=== PATIENT | male | born 1940 | race Caucasian/White ===

== ENCOUNTER → 2017-03-15 | Outpatient (CLI) | payer MEDICARE | END | disposition home or self-care (01) | LOC: CFH 10:42 → MERGE 11:00 | PROVIDERS: ATTEND Family Medicine | DX: N50.3 Cyst of epididymis (principal); N43.3 Hydrocele, unspecified | CPT/HCPCS: 76870 ==

== ENCOUNTER → 2018-11-09 | Outpatient (CLI) | payer MEDICARE ==
[~2018-11-09] MED LIST: ASPI-496 PO; ATOR20TA PO; DILT120C88 PO; HYDR-3307 PO; HYDR25TA6 PO; LOSA100T14 PO; POLY17PO29 PO; WARF-36 PO
[2018-11-09 09:54] LABS: BASOPHILS # (AUTO) 0.07 x10^3/uL (0-0.1); BASOPHILS % (AUTO) 1 % (0-1); EOSINOPHILS # (AUTO) 0.11 x10^3/uL (0-0.4); EOSINOPHILS % (AUTO) 1 % (1-7); HCT (SEDRATE) 48.3 % (39.2-51.8); LYMPHOCYTES % (AUTO) 18 % (22-44); MD NO; MEAN CORPUSCULAR HEMOGLOBIN 29.4 pg (27.5-34.5); MEAN CORPUSCULAR HGB CONC 32.9 g/dL (33.2-36.2); MEAN CORPUSCULAR VOLUME 89.2 fL (81-97); MEAN PLATELET VOLUME 8.9 fL (7.4-10.4); MONOCYTES # (AUTO) 0.88 x10^3/uL (0.2-0.8); MONOCYTES % (AUTO) 11 % (2-9); NEUTROPHILS # (AUTO) 5.38 x10^3/uL (1.8-6.8); NEUTROPHILS % (AUTO) 69 % (42-75); PLATELET COUNT 252 x10^3/uL (130-400); RED BLOOD COUNT 5.39 x10^6/uL (4.38-5.82); RED CELL DISTRIBUTION WIDTH 15.8 % (9.4-14.8)
[2018-11-09 10:01] LABS: MICROSCOPIC NOT IND
[2018-11-09 10:04] LABS: CULTURE INDICATED? NO
[2018-11-09 10:04] LABS: ALANINE AMINOTRANSFERASE 26 U/L (12-78); ALBUMIN 3.7 g/dL (3.4-5.0); ANION GAP 6 mmol/L (5-15); CALCIUM 8.9 mg/dL (8.5-10.1); CHLORIDE 103 mmol/L (98-107); CREATININE 1.26 mg/dL (0.7-1.3)
[2018-11-09 10:06] LABS: ALKALINE PHOSPHATASE 78 U/L (45-117); BILIRUBIN,TOTAL 0.5 mg/dL (0.2-1.0); TOTAL PROTEIN 7.5 g/dL (6.4-8.2)
[2018-11-09 10:11] LABS: INTERNATIONAL NORMALIZED RATIO 2.31 (0.93-1.1); PROTHROMBIN TIME 23.5 Seconds (9.6-11.5)
== END | disposition home or self-care (01) ==
LOC: STAR 08:19
PROVIDERS: ATTEND Internal Medicine
DX: M48.061 Spinal stenosis, lumbar region without neurogenic claudication (principal); M54.16 Radiculopathy, lumbar region; Z79.01 Long term (current) use of anticoagulants; Z79.899 Other long term (current) drug therapy; Z87.891 Personal history of nicotine dependence
CPT/HCPCS: 36415; 71046; 80053; 81003; 85025; 85610; 85651; 85730; 93005

== ENCOUNTER 2018-11-20 08:24 | Inpatient (IN) | payer MEDICARE ==
[~2018-11-20] VITALS: Ht 180.3 cm; Wt 135.0 kg
[~2018-11-20 08:24] MED LIST changes: +BACITRACIN 50,000 UNIT ONE; +BUPIVACAINE/PF-EPI 0.5% 1:200K ONE; +THROMBIN 20,000 UNIT VIAL TP ONE; +TRANEXAMIC ACID 100 MG/ML, 10ML ONE
[2018-11-20] MEDS ORDERED: LACTATED RINGERS 1,000 ML IV SCH (08:57)
[2018-11-20 09:08] VITALS: BP 126/76
[2018-11-20 09:34] LABS: INTERNATIONAL NORMALIZED RATIO 0.97 (0.93-1.1); PROTHROMBIN TIME 10.2 Seconds (9.6-11.5)
[2018-11-20] MEDS ORDERED: MIDAZOLAM 1 MG/ML, 2ML ONE (10:11)
[2018-11-20] MEDS ORDERED: FENTANYL PF 250 MCG/5ML ONE (10:12)
[2018-11-20] MEDS ORDERED: ROCURONIUM 10MG/ML,5ML ONE (10:16)
[2018-11-20] MEDS ORDERED: DEXAMETHASONE 4 MG/ML, 1ML ONE (10:16)
[2018-11-20] MEDS ORDERED: PROPOFOL 10 MG/ML, 20ML ONE (10:16)
[2018-11-20] MEDS ORDERED: SUCCINYLCHOLINE 20 MG/ML, 10ML ONE (10:16)
[2018-11-20] MEDS ORDERED: ONDANSETRON ODT 8 MG PO PRN (11:00)
[2018-11-20] MEDS ORDERED: MEPERIDINE/PF 25MG/0.5ML IVPush PRN (11:00)
[2018-11-20] MEDS ORDERED: hydrALAzine 20 MG/ML, 1ML IV PRN (11:00)
[2018-11-20] MEDS ORDERED: ONDANSETRON 2MG/ML, 2ML IV PRN ×2 (11:00→16:30)
[2018-11-20] MEDS ORDERED: FENTANYL PF 100 MCG/2ML IV PRN (11:00)
[2018-11-20] MEDS ORDERED: LABETALOL 5MG/ML, 20ML IV PRN ×2 (11:00→16:30)
[2018-11-20] MEDS ORDERED: DIAZEPAM 5 MG/ML, 2ML IVPush PRN (11:00)
[2018-11-20] MEDS ORDERED: PROMETHAZINE 12.5 MG SUPP PR PRN (11:00)
[2018-11-20] MEDS ORDERED: MIDAZOLAM 1 MG/ML, 2ML IV PRN (11:00)
[2018-11-20] MEDS ORDERED: ALBUTEROL SULFATE 2.5 MG/3 ML NPPB PRN (11:00)
[2018-11-20] MEDS ORDERED: HALOPERIDOL 5 MG/ML IV PRN (11:00)
[2018-11-20] MEDS ORDERED: EPHEDRINE 50 MG/ML, 1ML IVPush PRN (11:00)
[2018-11-20] MEDS ORDERED: PROMETHAZINE 25 MG/ML, 1ML IV PRN (11:00)
[2018-11-20] MEDS ORDERED: ACETAMINOPHEN 325 MG TABLET PO PRN (11:00)
[2018-11-20] MEDS ORDERED: OXYcodone 5 MG/5 ML ORAL.SOL UDC PO PRN (11:00)
[2018-11-20] MEDS ORDERED: EPHEDRINE 50 MG/ML, 1ML ONE (11:59)
[2018-11-20] MEDS ORDERED: VANCOMYCIN 1,000 MG ONE (12:45)
[2018-11-20] MEDS ORDERED: ONDANSETRON 2MG/ML, 2ML ONE (12:50)
[2018-11-20] MEDS ORDERED: FENTANYL PF 100 MCG/2ML ONE (13:11)
[2018-11-20] MEDS ORDERED: morphine SULFATE 10 MG/ML, 1ML ONE (14:09)
[2018-11-20] MEDS: MORPHINE SULFATE 4 MG/ML, 1ML IVPush PRN ×3 (14:11→14:30)
[2018-11-20] MEDS: DIAZEPAM 5 MG/ML, 10ML VIAL IVPush PRN ×2 (14:25→15:01)
[2018-11-20] MEDS ORDERED: HYDROmorphone 2 MG/ML, 1ML ONE (14:32)
[2018-11-20] MEDS: HYDROmorphone 2 MG/ML, 1ML IVPush PRN ×2 (14:38→14:50)
[2018-11-20] MEDS ORDERED: CEFAZOLIN 1,000 MG ONE (15:34)
[2018-11-20] MEDS ORDERED: PHARMACY MAY ADJ FOR RENAL FX MC PRN (16:00)
[2018-11-20] MEDS ORDERED: DIPHENHYDRAMINE 50 MG CAPSULE PO PRN (16:30)
[2018-11-20] MEDS ORDERED: DIPHENHYDRAMINE 50 MG/ML, 1ML IM PRN (16:30)
[2018-11-20] MEDS ORDERED: ACETAMINOPHEN 325 MG SUPP PR PRN (16:30)
[2018-11-20] MEDS ORDERED: PROMETHAZINE 25 MG/ML, 1ML IM PRN (16:30)
[2018-11-20] MEDS ORDERED: OXYcodone IR 5MG TABLET PO PRN (16:30)
[2018-11-20] MEDS ORDERED: MAGNESIUM HYDROXIDE 8%, 30ML UDC PO PRN (16:30)
[2018-11-20] MEDS ORDERED: ACETAMINOPHEN 500 MG TABLET PO PRN (16:30)
[2018-11-20] MEDS ORDERED: DIAZEPAM 5 MG/ML, 2ML IV PRN (16:30)
[2018-11-20] MEDS ORDERED: SODIUM CHLORIDE 0.9% 1,000ML IV PRN (16:30)
[2018-11-20] MEDS ORDERED: LORazepam 1MG TABLET PO PRN (16:30)
[2018-11-20] MEDS ORDERED: DEXAMETHASONE 4 MG/ML, 1ML IV PRN (16:30)
[2018-11-20] MEDS ORDERED: DIPHENHYDRAMINE 50 MG/ML, 1ML IVPush PRN (16:30)
[2018-11-20] MEDS ORDERED: BISACODYL 10 MG SUPP PR PRN (16:30)
[2018-11-20] MEDS ORDERED: morphine SULFATE 10 MG/ML, 1ML IV PRN (16:30)
[2018-11-20] MEDS: D5%-0.9% NACL+KCL 20MEQ 1,000 ML IV SCH ×2 (17:55→22:45)
[2018-11-20] MEDS: CEFAZOLIN PMX 1GM/50ML 50 ML IVPB SCH (18:20)
[2018-11-20] MEDS: ATORVASTATIN 20 MG TABLET PO SCH (20:03)
[2018-11-20] MEDS: DIAZEPAM 5 MG TABLET PO PRN (20:04)
[2018-11-20] MEDS: LOSARTAN 50MG TABLET PO SCH (20:04)
[2018-11-20] MEDS: SODIUM CHLORIDE FLUSH 10ML SYR IVF SCH (20:04)
[2018-11-20 20:28] VITALS: BP 112/60
[2018-11-20] MEDS ORDERED: ZOLPIDEM 5MG TABLET PO PRN (21:00)
[2018-11-20] MEDS: KETOROLAC 30 MG/1 ML IV PRN (21:54)
[2018-11-21 00:03] VITALS: BP 118/67
[2018-11-21] MEDS: CEFAZOLIN PMX 1GM/50ML 50 ML IVPB SCH (02:40)
[2018-11-21 04:18] VITALS: BP 111/62
[2018-11-21 06:37] LABS: CHLORIDE 104 mmol/L (98-107)
[2018-11-21 06:43] LABS: ANION GAP 9 mmol/L (5-15); CALCIUM 8.3 mg/dL (8.5-10.1); CREATININE 1.55 mg/dL (0.7-1.3)
[2018-11-21] MEDS: SODIUM CHLORIDE FLUSH 10ML SYR IVF SCH ×2 (08:03→21:00)
[2018-11-21 08:19] VITALS: BP 127/61
[2018-11-21] MEDS: SENNA/DOCUSATE TABLET PO SCH (08:26)
[2018-11-21] MEDS: LOSARTAN 50MG TABLET PO SCH ×2 (08:26→21:31)
[2018-11-21] MEDS: POLYETHYLENE GLYCOL 17 GM PACKET PO SCH (08:26)
[2018-11-21] MEDS: HYDROCHLOROTHIAZIDE 25 MG TABLET PO SCH (08:27)
[2018-11-21] MEDS: DILTIAZEM 120 MG CAP.ER.24H PO SCH (08:29)
[2018-11-21] MEDS: DIAZEPAM 5 MG TABLET PO PRN (09:56)
[2018-11-21] MEDS: D5%-0.9% NACL+KCL 20MEQ 1,000 ML IV SCH ×3 (10:40→19:53)
[2018-11-21 13:27] VITALS: BP 132/64
[2018-11-21] MEDS: OXYcodone IR 5MG TABLET PO PRN ×3 (14:26→21:30)
[2018-11-21] MEDS: ATORVASTATIN 20 MG TABLET PO SCH (21:30)
[2018-11-21 21:54] VITALS: BP 107/65
[2018-11-22 00:59] VITALS: BP 111/59
[2018-11-22 05:22] LABS: ANION GAP 5 mmol/L (5-15); CALCIUM 8.1 mg/dL (8.5-10.1); CHLORIDE 105 mmol/L (98-107)
[2018-11-22 05:24] LABS: CREATININE 1.16 mg/dL (0.7-1.3)
[2018-11-22 08:04] VITALS: BP 111/57
[2018-11-22] MEDS: HYDROCHLOROTHIAZIDE 25 MG TABLET PO SCH (09:01)
[2018-11-22] MEDS: LOSARTAN 50MG TABLET PO SCH (09:01)
[2018-11-22] MEDS: DILTIAZEM 120 MG CAP.ER.24H PO SCH (09:01)
[2018-11-22] MEDS: POLYETHYLENE GLYCOL 17 GM PACKET PO SCH (09:02)
[2018-11-22] MEDS: KETOROLAC 30 MG/1 ML IV PRN (09:02)
[2018-11-22] MEDS: OXYcodone IR 5MG TABLET PO PRN ×2 (09:02→12:55)
[2018-11-22] MEDS: SENNA/DOCUSATE TABLET PO SCH (09:02)
[2018-11-22] MEDS: SODIUM CHLORIDE FLUSH 10ML SYR IVF SCH (09:04)
[2018-11-22] MEDS: D5%-0.9% NACL+KCL 20MEQ 1,000 ML IV SCH (10:38)
[2018-11-22 12:57] VITALS: BP 100/78
[2018-11-22] MEDS ORDERED: CEPH-368 PO (14:04)
[2018-11-22] MEDS ORDERED: DIAZ5TAB4 PO (14:04)
[2018-11-22] MEDS ORDERED: OXYC10TA6 PO (14:06)
== END 2018-11-22 14:18 | disposition home or self-care (01) | DRG 516 ==
LOC: ORIP 08:24 → 4NOR 15:40 → DCLOUNGE 11-22 13:54
PROVIDERS: ADMIT Orthopaedic Surgery Orthopaedic Surgery of the Spine; ATTEND Orthopaedic Surgery Orthopaedic Surgery of the Spine
PROC: 4A10X4G Monitoring of Central Nervous Electrical Activity, Intraoperative, External Approach (ICD-10-PCS; 2018-11-20)
PROC: 01NB0ZZ Release Lumbar Nerve, Open Approach (ICD-10-PCS; principal; 2018-11-20 10:30)
DX: M48.061 Spinal stenosis, lumbar region without neurogenic claudication (principal); Z68.41 Body mass index [BMI] 40.0-44.9, adult; M51.16 Intervertebral disc disorders with radiculopathy, lumbar region; G47.33 Obstructive sleep apnea (adult) (pediatric); I10 Essential (primary) hypertension; E78.5 Hyperlipidemia, unspecified; I25.10 Atherosclerotic heart disease of native coronary artery without angina pectoris; Z95.5 Presence of coronary angioplasty implant and graft; Z95.2 Presence of prosthetic heart valve; E66.01 Morbid (severe) obesity due to excess calories
CPT/HCPCS: 36415; 72100; 80048; 85610; 85730; G0378; J0690; J1100; J1170; J1885; J2250; J2270; J2405; J2704; J3010; J3370; C1760; J0330; J3480; J7120

== ENCOUNTER 2021-05-10 11:40 | Outpatient (CLI) | payer MEDICARE ==
[~2021-05-10 11:40] MED LIST changes: -BACITRACIN 50,000 UNIT ONE; -BUPIVACAINE/PF-EPI 0.5% 1:200K ONE; +CEPH-368 PO; +DIAZ5TAB4 PO; +DILT120C83 PO; -DILT120C88 PO; +HYDR-3248 PO; -HYDR-3307 PO; +OXYC10TA6 PO; -POLY17PO29 PO; +POLY17PO50 PO; -THROMBIN 20,000 UNIT VIAL TP ONE; -TRANEXAMIC ACID 100 MG/ML, 10ML ONE
[2021-05-10] MEDS ORDERED: AMLO2.5T5 PO (12:33)
[2021-05-10] MEDS ORDERED: TRAM50TA2 PO (12:33)
[2021-05-10 12:51] LABS: BASOPHILS % (AUTO) 1 % (0-1); EOSINOPHILS % (AUTO) 0 % (1-7); LYMPHOCYTES % (AUTO) 13 % (22-44); MEAN CORPUSCULAR HEMOGLOBIN 28.7 pg (27.5-34.5); MEAN CORPUSCULAR HGB CONC 33.3 g/dL (33.2-36.2); MEAN PLATELET VOLUME 8.1 fL (7.4-10.4); MONOCYTES % (AUTO) 10 % (2-9); NEUTROPHILS % (AUTO) 76 % (42-75); PLATELET COUNT 282 x10^3/uL (130-400); RED BLOOD COUNT 5.21 x10^6/uL (4.38-5.82); RED CELL DISTRIBUTION WIDTH 16.3 % (9.4-14.8)
[2021-05-10 13:02] LABS: ALANINE AMINOTRANSFERASE 21 U/L (12-78); ALBUMIN 3.5 g/dL (3.4-5.0); ANION GAP 6 mmol/L (5-15); CHLORIDE 104 mmol/L (98-107)
[2021-05-10 13:03] LABS: INTERNATIONAL NORMALIZED RATIO 1.6 (0.93-1.1); PROTHROMBIN TIME 16.7 Seconds (9.6-11.5)
[2021-05-10 13:16] LABS: ALKALINE PHOSPHATASE 95 U/L (45-117); BILIRUBIN,TOTAL 0.5 mg/dL (0.2-1.0); CALCIUM 9.5 mg/dL (8.5-10.1); CREATININE 1.22 mg/dL (0.7-1.3); TOTAL PROTEIN 7.6 g/dL (6.4-8.2)
[2021-05-10 13:32] LABS: HCT (SEDRATE) 44.9 % (39.2-51.8)
== END 2021-05-10 23:59 | disposition home or self-care (01) ==
LOC: STAR 11:40
PROVIDERS: ATTEND Orthopaedic Surgery Orthopaedic Surgery of the Spine
DX: Z01.812 Encounter for preprocedural laboratory examination (principal); Z20.822 Contact with and (suspected) exposure to COVID-19; M41.86 Other forms of scoliosis, lumbar region; M48.061 Spinal stenosis, lumbar region without neurogenic claudication; Z95.2 Presence of prosthetic heart valve
CPT/HCPCS: 36415; 71046; 80053; 83036; 85025; 85610; 85651; 85730; 87635